=== PATIENT | male | born 1975 | race Hispanic/Latino ===

== ENCOUNTER 2018-07-28 13:08 | Outpatient (CLI) | payer OTHER ==
--- NOTE | 2018-07-28 14:23 | RAD ---
KUB: Date: 07-28-18 Provided Clinical History: Hematuria. FINDINGS: No comparisons. The abdominal bowel gas pattern is nonspecific. No radiographically apparent urinary tract calculi. V ascular calcifications overlie the pelvis. The osseous structures demonstrate no acute findings. IMPRESSION: No definite radiographically apparent urinary tract calculi. POS: [facility]
== END 2018-07-28 13:09 | disposition home or self-care (01) ==
LOC: BICRAD 13:08
PROVIDERS: ATTEND Internal Medicine
DX: R31.9 Hematuria, unspecified (principal)
CPT/HCPCS: 74018

== ENCOUNTER 2019-12-13 08:55 | Outpatient (CLI) | payer OTHER ==
[2019-12-13] MEDS ORDERED: MD-Gastroview 120 ML BOT ONE (11:54)
--- NOTE | 2019-12-13 13:26 | RAD ---
Contrast enema single column: 12/13/2019 HISTORY: 44-year-old male with the following provided history: "Z 93.2 ileostomy present N 32.1 colovesical fistula K 57.20, diverticulitis of large intestine with perforation and abscess without bleeding" TECHNIQUE: Following placement of rectal catheter, Gastrografin was introduced into the colon under fluoroscopy. Fluoroscopic spot images obtained. Post drainage image obtained. FINDINGS: There is focal stricture at the upper rectum or junction between the rectum and at least partially re sected sigmoid colon. Proximal to that, the margins of the luminal are very irregular and contains ill-defined filling defects. Cephalad to that, there is free flow of contrast material through the de scending colon, splenic flexure, transverse colon, and hepatic flexure, into the mid to distal portion of the ascending colon. The contrast material later fills most of the ascending colon and pos sibly the cecum on the post drainage overhead radiograph. IMPRESSION: High-grade stricture and significant irregularity at colorectal anastomosis
== END 2019-12-13 08:56 | disposition home or self-care (01) ==
LOC: RAD 08:55
PROVIDERS: ATTEND Surgery
DX: K57.20 Diverticulitis of large intestine with perforation and abscess without bleeding (principal); N32.1 Vesicointestinal fistula; K56.699 Other intestinal obstruction unspecified as to partial versus complete obstruction; Z98.0 Intestinal bypass and anastomosis status; Z93.2 Ileostomy status
CPT/HCPCS: 74280; Q9963